=== PATIENT | male | born 1990 | race Caucasian/White ===

== ENCOUNTER 2016-09-11 12:46 | Emergency (ER) | payer OTHER ==
[2016-09-11 13:40] VITALS: RESP 18; O2SAT 99
[2016-09-11] MEDS ORDERED: Sodium Chloride 0.9% 1,000 ML IV ONE (13:50)
--- NOTE | 2016-09-11 13:55 | C.PDOC ---
History Of Present Illness 25 y/o male sent to the ED from clinic to rule out appendicitis. Pt reports pain to RLQ and right testicle. Pt denies changes in appetite, nausea, vomiting , diarrhea, fever or any other complaints. Time Seen by Provider: 09/11/16 13:16 Chief Complaint (Nursing): Male Genitourinary History Per: Patient History/Exam Limitations: no limitations Current Symptoms Are (Timing): Still Present Severity: Moderate Quality Of Discomfort: "Pain" Associated Symptoms: denies: Fever, Chills, Nausea, Vomiting, Diarrhea Alleviating Factors: None Recent travel outside of the [place]: No Past Medical History Reviewed: Historical Data, Nursing Documentation, Vital Signs Vital Signs: Last Vital Signs Temp 98.1 F 09/11/16 16:34 Pulse 58 L 09/11/16 16:34 Resp 18 09/11/16 16:34 BP 125/71 09/11/16 16:34 Pulse Ox 99 09/11/16 16:46 - Medical History PMH: No Chronic Diseases Surgical History: No Surg Hx Family History: States: Unknown Family Hx - Social History Hx Alcohol Use: Yes Hx Substance Use: No - Immunization History Hx Tetanus Toxoid Vaccination: No Hx Influenza Vaccination: Yes Hx Pneumococcal Vaccination: No Review Of Systems Except As Marked, All Systems Reviewed And Found Negative. Constitutional: Negative for: Fever, Chills Gastrointestinal: Positive for: Abdominal Pain. Negative for: Nausea, Vomiting , Diarrhea Genitourinary: Positive for: Other (right testcular pain) Physical Exam - Physical Exam Appears: Non-toxic, No Acute Distress Skin: Warm, Dry, No Rash Head: Atraumatic, Normacephalic Chest: Symmetrical Cardiovascular: Rhythm Regular, No Murmur Respiratory: Normal Breath Sounds, No Rales, No Rhonchi, No Wheezing Gastrointestinal/Abdominal: Soft, Tenderness (RLQ), No Guarding, No Rebound Male Genital: Testicular Tenderness (right), No Testicular Swelling Extremity: Bilateral: Atraumatic Neurological/Psych: Oriented x3 Gait: Steady ED Course And Treatment - Laboratory Results Result Diagrams: 09/11/16 15:08 09/11/16 15:08 Lab Interpretation: Normal O2 Sat by Pulse Oximetry: 99 (on room air) Pulse Ox Interpretation: Normal - CT Scan/US No standard instances Other Rad Studies (CT/US): Interpreted By Me CT/US Interpretation: HISTORY: Pain. COMPARISON: None available. TECHNIQUE: Contiguous axial images of the abdomen and pelvis. No oral or IV contrast administered. Coronal and Sagittal reformats generated. Radiation dose: Total exam DLP = 895.30 mGy-cm. FINDINGS: There is limited evaluation of the solid organs without the administration of IV contrast. LOWER THORAX: No visible consolidation, pleural effusion, or pneumothorax. LIVER: Unremarkable unenhanced appearance. GALLBLADDER AND BILE DUCTS: Unremarkable unenhanced appearance. PANCREAS: Unremarkable unenhanced appearance. SPLEEN: Unremarkable unenhanced appearance. ADRENALS: Unremarkable unenhanced appearance. KIDNEYS AND URETERS: No hydronephrosis or obstructing renal calculus. BLADDER: Decompressed urinary bladder precludes adequate evaluation. REPRODUCTIVE: Unremarkable. APPENDIX: The appendix appears within normal limits of caliber. High-density material within the appendix, possibly milk of calcium or appendicolith. No secondary signs of acute appendicitis. BOWEL: The stomach is nondistended. Lack of oral contrast limits evaluation for bowel pathology. The bowel loops appear within normal limits of caliber without evidence of intestinal obstruction. Mild constipation. PERITONEUM: No significant free fluid. No definite free air. LYMPH NODES: No bulky lymphadenopathy identified. VASCULATURE: No aortic aneurysm. BONES: No acute osseous abnormality is detected. OTHER FINDINGS: None. IMPRESSION: The appendix appears within normal limits of caliber. High- density material within the appendix, possibly milk of calcium or appendicolith. No secondary signs of acute appendicitis. No hydronephrosis or obstructing calculus identified. Mild constipation. Testicular US Other Rad Studies (CT/US): Read By Radiologist, Radiology Report Reviewed CT/US Interpretation: Accession No. : [id number]. Patient Name / ID : RASHMI Nagel / [id number]. Exam Date : 09/11/2016 15:40:06 ( Approved ). Study Comment : Sex / Age : M / 25Y. Creator : Ailyn Granados MD. Dictator : Ailyn Granados MD. Legal Services Manager : Medical Research Associate : Ailyn Granados MD. Approver2 : Report Date : 09/11/2016 16:22:58. My Comment : . HISTORY: pain. TECHNIQUE: Realtime sonography through the scrotum with color and doppler flow. COMPARISON: None Available. FINDINGS: RIGHT TESTICLE : Measures 4.7 x 1.8 x 3.8 cm. Homogeneous echotexture. Blood flow is demonstrated. RIGHT EPIDIDYMIS: Measures approximately 0.9 x 0.8 x 0.9 cm. LEFT TESTICLE: Measures 4.5 x 2.2 x 2.6 cm. Homogeneous echotexture. Blood flow demonstrated. LEFT EPIDIDYMIS: Measures approximately 1.1 x 0.9 x 0.9 cm. HYDROCELE: None. VARICOCELE: Bilateral varicoceles. OTHER FINDINGS: None. IMPRESSION: Bilateral varicoceles. Progress Note: Plan: CT abd, labs, IV fluids, UA. On re-evaluation abdomen soft , mild RLQ tenderness Reassessment Condition: Improved Disposition Counseled Patient/Family Regarding: Studies Performed, Diagnosis, Need For Followup, Rx Given - Disposition Referrals: Lev Peoples MD [Staff Provider] - Disposition: HOME/ ROUTINE Disposition Time: 16:40 Condition: STABLE Additional Instructions: follow up with PMD and urology for further evaluation Instructions: Varicocele (ED), Testicle Pain (ED) - POA Present On Arrival: None - Clinical Impression Clinical Impression: Abdominal pain, Pain in testicle - PA / LOOM TUNER / Resident Statement MD/DO has reviewed & agrees with the documentation as recorded. - Scribe Statement The provider has reviewed the documentation as recorded by the Serina Wen All medical record entries made by the Serina were at my direction and personally dictated by me. I have reviewed the chart and agree that the record accurately reflects my personal performance of the history, physical exam, medical decision making, and the department course for this patient. I have also personally directed, reviewed, and agree with the discharge instructions and disposition.
[2016-09-11] MEDS ORDERED: Sodium Chloride 0.9% 0 ML ONE (14:11)
[2016-09-11 14:32] LABS: RBC URINE 1 /hpf (0-3); URINE BILIRUBIN NEGATIVE (NEGATIVE); URINE BLOOD NEGATIVE (NEGATIVE); URINE COLOR Yellow (YELLOW); URINE GLUCOSE (UA) NORMAL (Normal); URINE KETONE NEGATIVE (NEGATIVE); URINE LEUKOCYTE ESTERASE NEG Leu/uL (Negative); URINE PROTEIN NEGATIVE (NEGATIVE); URINE UROBILINOGEN NORMAL mg/dL (0.2-1.0)
[2016-09-11 15:13] LABS: BASO % 0.3 % (0.0-2.0); EOS # 0.1 K/uL (0.0-0.7); EOS % 2.3 % (0.0-4.0); LYMPH # 1.4 K/uL (1.0-4.3); LYMPH % 23.5 % (20.0-40.0); MEAN CELL VOLUME 81.8 fL (80.0-94.0); MEAN CORPUSCULAR HEMOGLOBIN 27.6 pg (27.0-31.0); MEAN CORPUSCULAR HGB CONC 33.8 g/dL (33.0-37.0); MEAN PLATELET VOLUME 8.9 fL (7.2-11.7); MONO # 0.4 K/uL (0.0-0.8); MONO % 6.8 % (0.0-10.0); RED CELL DISTRIBUTION WIDTH 13.3 % (11.5-14.5); WHITE BLOOD COUNT 5.9 K/uL (4.8-10.8)
[2016-09-11] MEDS ORDERED: Sodium Chloride 0.9% 1,000 ML ONE (15:14)
--- NOTE | 2016-09-11 15:18 | CT ---
PROCEDURE: CT Abdomen and Pelvis without Oral or IV contrast. HISTORY: Pain COMPARISON: None available TECHNIQUE: Contiguous axial images of the abdomen and pelvis. No oral or IV contrast administered. Coronal and Sagittal reformats generated. Radiation dose: Total exam DLP = 895.30 mGy-cm. FINDINGS: There is limited evaluation of the solid organs without the administration of IV contrast. LOWER THORAX: No visible consolidation, pleural effusion, or pneumothorax. LIVER: Unremarkable unenhanced appearance. GALLBLADDER AND BILE DUCTS: Unremarkable unenhanced appearance. PANCREAS: Unremarkable unenhanced appearance. SPLEEN: Unremarkable unenhanced appearance. ADRENALS: Unremarkable unenhanced appearance. KIDNEYS AND URETERS: No hydronephrosis or obstructing renal calculus. BLADDER: Decompressed urinary bladder precludes adequate evaluation. REPRODUCTIVE: Unremarkable. APPENDIX: The appendix appears within normal limits of caliber. High-density material within the appendix, possibly milk of calcium or appendicolith. No secondary signs of acute appendicitis. BOWEL: The stomach is nondistended. Lack of oral contrast limits evaluation for bowel pathology. The bowel loops appear within normal limits of caliber without evidence of intestinal obstruction. Mild constipation. PERITONEUM: No significant free fluid. No definite free air. LYMPH NODES: No bulky lymphadenopathy identified. VASCULATURE: No aortic aneurysm. BONES: No acute osseous abnormality is detected. OTHER FINDINGS: None. IMPRESSION: The appendix appears within normal limits of caliber. High-density material within the appendix, possibly milk of calcium or appendicolith. No secondary signs of acute appendicitis. No hydronephrosis or obstructing calculus identified. Mild constipation.
[2016-09-11 15:22] LABS: CHLORIDE 102 mmol/L (98-107); SODIUM 142 mmol/L (132-148)
[2016-09-11 15:23] LABS: POTASSIUM 4.1 mmol/L (3.6-5.2)
[2016-09-11 15:25] LABS: ALB/GLOB RATIO 1.5 (1.0-2.1); ALKALINE PHOSPHATASE 41 U/L (38-126); AST/SGOT 26 U/L (17-59); BILIRUBIN,TOTAL 1.1 mg/dL (0.2-1.3); BLOOD UREA NITROGEN 16 mg/dL (9-20); CARBON DIOXIDE 26 mmol/L (22-30); GFR AFRICAN-AMERICAN > 60; TOTAL PROTEIN 7.5 g/dL (6.3-8.3)
[2016-09-11 15:26] LABS: ALT/SGPT 35 U/L (21-72); CALCIUM 9.4 mg/dl (8.6-10.4); GLUCOSE,RANDOM 90 mg/dL (75-110)
--- NOTE | 2016-09-11 16:24 | US ---
HISTORY: pain TECHNIQUE: Realtime sonography through the scrotum with color and doppler flow. COMPARISON: None Available. FINDINGS: RIGHT TESTICLE: Measures 4.7 x 1.8 x 3.8 cm. Homogeneous echotexture. Blood flow is demonstrated. RIGHT EPIDIDYMIS: Measures approximately 0.9 x 0.8 x 0.9 cm. LEFT TESTICLE: Measures 4.5 x 2.2 x 2.6 cm. Homogeneous echotexture. Blood flow demonstrated. LEFT EPIDIDYMIS: Measures approximately 1.1 x 0.9 x 0.9 cm. HYDROCELE: None. VARICOCELE: Bilateral varicoceles. OTHER FINDINGS: None. IMPRESSION: Bilateral varicoceles.
[2016-09-11 16:35] VITALS: BP 125/71; PULSE 58; TEMP 98.1
== END 2016-09-11 17:14 | disposition home or self-care (01) ==
LOC: C.ER 12:46
DX: N50.811 Right testicular pain (principal); R10.31 Right lower quadrant pain
CPT/HCPCS: 74176; 76870; 80053; 81001; 85025; 99285; J7040